=== PATIENT | female | born 1950 | race Caucasian/White ===

== ENCOUNTER 2019-07-24 | Emergency (ER) | payer MEDICARE ==
[~2019-07-24] MED LIST: ALLEGRA180 MG PO; ASPIRIN LOW DOS81 MG PO; CALCIUM500 M2 PO; FLONASE NASAL50 MCG; GLYBURIDE5 M1 PO; LOSARTAN POT100 MG PO; METFORMIN500 MG PO; PRAVASTATIN SOD20 MG PO; TOBRAMYCIN0.3 % OD; ZIAC PO; ambien
[2019-07-24 13:52] LABS: HEMOGLOBIN 12.2 g/dl (12.0-16.0); IMMATURE GRANULOCYTES 0.3 % (0.0-5.0); MEAN CELL VOLUME 91.1 fL CALC (80.0-100.0); NEUT# 4.38 thou/uL (2.00-7.15); RED BLOOD COUNT 4.06 mill/uL (4.20-5.60); RED CELL DISTRI WIDTH 12.7 % (11.5-15.5)
[2019-07-24 14:16] LABS: ANION GAP 13 (6-22 (CALC)); BUN 13 mg/dL (8-23); BUN/CREATININE RATIO 17 (12-20 (CALC)); CARBON DIOXIDE 27 mmol/l (22-30); CHLORIDE 103 mmol/l (95-108); CREATININE 0.8 mg/dL (0.5-1.0); GFR > 60 ML/MIN (>=60 (CALC)); GFR FOR AFR.AMER. > 60 ML/MIN (>=60 (CALC)); POTASSIUM 3.8 mmol/l (3.5-5.1); SODIUM 139 mmol/l (137-146)
== END 2019-07-24 15:01 | disposition home or self-care (01) ==
PROVIDERS: Family Medicine
DX: R51 Headache (principal)

== ENCOUNTER 2020-07-23 13:42 | Observation (INO) | payer MEDICARE ==
[~2020-07-23] VITALS: Ht 160 cm; Wt 71.9 kg
--- NOTE | 2020-07-23 13:45 | NUR ---
PT AMBUALTED TO ROOM IN NO APPARENT DITRESS FOR BEDSIDE TRIAGE
--- NOTE | 2020-07-23 14:29 | NUR ---
UNABLE TO START IV X2 PT REFUSING ANOTHER ATTEMPT AT THIS TME
--- NOTE | 2020-07-23 15:15 | NUR ---
PT UNABLE TO PRODUCE URINE AT THIS TIME
[2020-07-23 15:22] LABS: HEMATOCRIT 40.4 % (37.0-47.0); HEMOGLOBIN 12.9 g/dl (12.0-16.0); IMMATURE GRANULOCYTES 0.3 % (0.0-5.0); MEAN CELL VOLUME 91.8 fL CALC (80.0-100.0); MEAN CORPUSCULAR HGB 29.3 pG CALC (26.0-32.0); MEAN CORPUSCULAR HGB CONC 31.9 g/dL CAL (32.0-36.0); NEUT# 4.51 thou/uL (2.00-7.15); RED BLOOD COUNT 4.4 mill/uL (4.20-5.60); RED CELL DISTRI WIDTH 12.5 % (11.5-15.5)
[2020-07-23 15:34] LABS: ALBUMIN 4.5 g/dL (3.2-5.0); ALKALINE PHOSPHATASE 92 u/l (38-126); ANION GAP 12 (6-22 (CALC)); BILIRUBIN, TOTAL 0.6 mg/dL (0.0-1.4); BUN 12 mg/dL (8-23); BUN/CREATININE RATIO 16 (12-20 (CALC)); CARBON DIOXIDE 30 mmol/l (22-30); CHLORIDE 103 mmol/l (95-108); CREATININE 0.8 mg/dL (0.5-1.0); GFR > 60 ML/MIN (>=60 (CALC)); GFR FOR AFR.AMER. > 60 ML/MIN (>=60 (CALC)); POTASSIUM 3.8 mmol/l (3.5-5.1); SGOT/AST 23 u/l (9-36); SODIUM 140 mmol/l (137-146); TOTAL PROTEIN 7.7 g/dL (6.3-8.2)
[2020-07-23 15:47] LABS: MYOGLOBIN 19 ng/mL (0 - 62)
--- NOTE | 2020-07-23 16:05 | NUR ---
PT COMPLAINING OF HEADACHE, OK FOR PT TO TAKE HER OWN TYLENOL
[2020-07-23] MEDS ORDERED: METFORMIN HCL1000 MG PO (16:41)
[2020-07-23] MEDS ORDERED: GLIMEPIRIDE2 MG PO (16:41)
--- NOTE | 2020-07-23 16:45 | NUR ---
SBAR PRINTED TO FLOOR
--- NOTE | 2020-07-23 17:16 | NUR ---
PT ARRIVED FROM ER VIA WC WITH STAFF. IV SITE AND TELE MONITOR IN PLACE,.
[2020-07-23 17:20] VITALS: BP 154/69
--- NOTE | 2020-07-23 17:22 | NUR ---
Transfer Information Transferred To: [facility] Report Given to: TYLER Transported by: [facility] [employer] Other Transported with: X Nurse Transporter X Patent IV O2 X Operations Manager Assistant PT TRANSPORTED WITHOUT DISTRESS
[2020-07-23 17:30] LABS: URINE BILIRUBIN - DIPSTICK NEGATIVE (NEGATIVE); URINE BLOOD DIPSTICK NEGATIVE (NEGATIVE); URINE COLOR YELLOW; URINE GLUCOSE - DIPSTICK NEGATIVE (NEGATIVE); URINE KETONE NEGATIVE (NEGATIVE); URINE LEUK ESTERASE NEGATIVE (NEGATIVE); URINE NITRITE - DIPSTICK NEGATIVE (Negative); URINE PROTEIN - DIPSTICK NEGATIVE (NEG-TRACE); URINE UROBILINOGEN - DIPSTICK 0.2 E.U./dL (0.2)
--- NOTE | 2020-07-23 18:05 | NUR ---
ASSESSMENT IS COMPLETED: IV SITE IS FREE FROM REDNESS OR EDEMA. HR IS REG,PULSES ARE STRONG X4, ABD IS SOFT WITH ACTIVE BS,. BREATH SOUNDS ARE CLEAR BILATERALLY. TELE MONITOR IN PLACE. CONTINUE TO OSBERVE AND MONITOR.
[2020-07-23 19:50] VITALS: BP 151/70
--- NOTE | 2020-07-23 21:05 | NUR ---
PT MEDICATED ORDERS PROVIDE AND ASSESSMENT COMPLETED AT THIS TIME. PT ASKED FOR TRAZADONE FOR SLEEP REPORTING THAT SHE TAKES IT AT HOME. I ASKED HER WHAT DOSAGE SHE TAKES BECAUSE IT IS NOT LISTED IN HER MED REQ. SHE IS UNABLE TO TELL ME DOSE. PHYSICIAN NOTIFIED OF REQUEST, WILL AWAIT NEW ORDERS. PT REPORTS STOOL OUTPUT THIS AM. PT DENIES CHEST PAIN OR N/V. SHE STATES SHE HAS MILD PRESSURE FEELING IN UPPER CHEST WHEN SHE DEEP BREATHES ONLY.
[2020-07-24] VITALS: BP 151/72
--- NOTE | 2020-07-24 00:08 | NUR ---
PT MEDICATED W/SLEEP AIDE REQUESTED. GINGERALE PROVIDED PER REQUEST. DENIES ANY OTHER NEEDS. SHE WAS AWAKE AND READING ON PHONE AND TV ON. NO S/O DISTRESS NOTED.
--- NOTE | 2020-07-24 00:30 | NUR ---
HUMAN CAPITAL ANALYST REPORTS THAT SHE WAS UNABLE TO OBTAIN BLOOD DRAW. I WAS ABLE TO DRAW PT'S BLOOD AT THIS TIME FOR LAB. PT TOLERATED WELL.
[2020-07-24 04:00] VITALS: BP 161/73
--- NOTE | 2020-07-24 05:30 | NUR ---
PT UP TO RESTROOM BY HERSELF, UPON HEARING PT UP I CHECKED ON PT, SHE WAS BACK TO THE BED AND DENIED ANY NEEDS OF ASSISTANCE AT THIS TIME. I ENCOURAGED HER TO CALL ANY NEEDS ARISE.
[2020-07-24 07:30] VITALS: BP 154/61
--- NOTE | 2020-07-24 07:30 | NUR ---
ASSESSMENT IS COMPLETED; IV SITE IS FREE FROM REDNESS OR EDEMA. HR IS REG, PULSES ARE STRONG X4, ABD IS SOFT WITH ACTIVE BS. BREATH SOUNDS ARE CLEAR BILATERALLY, TELE MONITOR IN PLACE.
[2020-07-24] MEDS ORDERED: COZAAR50 MG PO (09:12)
[2020-07-24 10:35] VITALS: BP 158/71
--- NOTE | 2020-07-24 12:15 | NUR ---
IV SITE DISCONTIUED CATHETER INTACT. NO REDNESS OR EDEMA. TELE MONITOR TAKEN OFF. DISCHARGE INSTRUCTIONS GIVEN TO PT AND VERBALIZED UNDERSTANDING. CONTINUE TO OBSERVE AND MONITOR.
--- NOTE | 2020-07-24 12:20 | NUR ---
Discharge instructions given. Patient verbalizes understanding of same. Discharged in stable condition via Wheelchair to Home with family. All belongings sent with pt.
== END 2020-07-24 12:15 | disposition home or self-care (01) ==
LOC: ED 13:42 → ED-I 14:14 → ED 16:43 → MS2 16:44
PROVIDERS: Emergency Medicine; ADMIT Internal Medicine; ATTEND Internal Medicine
DX: R07.89 Other chest pain (principal); E11.9 Type 2 diabetes mellitus without complications; I10 Essential (primary) hypertension; I25.10 Atherosclerotic heart disease of native coronary artery without angina pectoris; Z79.84 Long term (current) use of oral hypoglycemic drugs; Z95.5 Presence of coronary angioplasty implant and graft; Z20.822 Contact with and (suspected) exposure to COVID-19
CPT/HCPCS: J1650